=== PATIENT | male | born 1955 | race Caucasian/White ===

== ENCOUNTER 2016-12-05 15:26 | Emergency (ER) | payer OTHER, BC ==
[~2016-12-05] VITALS: Ht 175.3 cm; Wt 72.6 kg
[2016-12-05] MEDS ORDERED: TdaP Vaccine 0.5ml Syr IM ONE (15:45)
[2016-12-05] MEDS ORDERED: Lidocaine 1% MPF 10mg/ml 5ml INJ ONE (15:45)
[2016-12-05] MEDS ORDERED: Bacitracin Oint UD TOPIC ONE (15:45)
[2016-12-05] MEDS ORDERED: ANTIBIOTIC28.4 GM TP (16:57)
[2016-12-05 17:07] VITALS: BP 151/85
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
--- NOTE | 2016-12-06 10:27 | Diagnostic Imaging Report ---
Indication: Pain Findings: 3 views of the left wrist were obtained. No acute fractures, malalignment, erosions or periostitis are identified. Bone mineralization is within normal limits. Joint space narrowing the base of the thumb noted. Soft tissues are unremarkable. Impression: No acute injury identified
== END 2016-12-05 17:07 | disposition home or self-care (01) ==
LOC: EDBD 15:26 → EMR 15:52
DX: S01.511A Laceration without foreign body of lip, initial encounter (principal); Z23 Encounter for immunization; M25.532 Pain in left wrist; V23.4XXA Motorcycle driver injured in collision with car, pick-up truck or van in traffic accident, initial encounter; Y93.9 Activity, unspecified; Y92.410 Unspecified street and highway as the place of occurrence of the external cause
CPT/HCPCS: 90471; 90715; 96372